=== PATIENT | female | born 1985 | race Caucasian/White ===

== ENCOUNTER 2020-01-12 13:45 | Outpatient (CLI) | payer MEDICAID ==
--- NOTE | 2020-01-12 17:36 | Ultrasound Report ---
Reason: POSITVE TEST Procedure Date: 01/12/2020 Accession Number: [id number] / [id number] Procedure: US - OB First Trimester CPT Code: Final Report FULL RESULT: EXAM: FIRST TRIMESTER OBSTETRIC ULTRASOUND (LESS THAN 11 WEEKS). EXAM DATE: 01/12/2020 02:40 PM. CLINICAL HISTORY: Positive test. LMP: 11/13/2019. COMPARISONS: None. TECHNIQUE: Transabdominal and transvaginal ultrasound examination with static image documentation. CLINICAL DATES: EGA 8 weeks 4 days with AGATA 08/19/2020 based on LMP. ASSESSMENT: Gestational Sac: Single intrauterine. Mean gestational sac diameter: 33 mm = 8 weeks 3 days. Embryo: CRL (crown-rump length) 16 mm = 8 weeks 0 days. Cardiac activity: 171 beats per minute. Yolk sac: 5 mm. Amniotic fluid: Not accurately assessed at this gestational age. Early placenta: Not visible at this gestational age. Other: 1. Perigestational collection in the lower uterus measuring approximately 1.5 x 1 cm. 2. Perigestational collection closer to the fundus measuring approximately 1.7 by 1 cm. MATERNAL STRUCTURES: Uterus: Anteverted. Unremarkable. Cervix: Closed. There is trace fluid in the cervical canal. Right Ovary/Adnexa: The ovary measures 3.5 x 1.9 x 2.9 cm, volume 10.2 cc. A corpus luteum measures 2 x 1.8 x 2.3 cm. A simple paraovarian cyst measures 1.9 x 1.3 cm. Left Ovary/Adnexa: The ovary measures 3.5 x 1.9 x 2 cm, volume 7.1 cc. Unremarkable. Free Fluid: None. Other: None. IMPRESSION: 1. Single viable intrauterine at EGA 7 weeks 0 days with AGATA 09/02/2020 based on crown-rump length, which is within 4 days of clinical dates. 2. Assigned dating is AGATA 08/19/2020 based on LMP. 3. There are 2 small perigestational collections. There is trace fluid in the cervical canal. RADIA
== END 2020-01-12 13:46 | disposition home or self-care (01) ==
LOC: DI 13:45
PROVIDERS: ATTEND Advanced Practice Midwife
DX: Z32.01 Encounter for pregnancy test, result positive (principal)
CPT/HCPCS: 76801; 76817

== ENCOUNTER 2020-01-24 07:00 | Outpatient (CLI) | payer MEDICAID ==
[2020-01-24 16:13] LABS: MUDS CUTOFF CONCENTRATIONS CUTOFF CONC BELOW:
[2020-01-24 16:53] LABS: BILIRUBIN,URINE NEGATIVE (NEGATIVE); GLUCOSE, URINE (UA) NEGATIVE (NEGATIVE); KETONES,URINE (UA) NEGATIVE (NEGATIVE); LEUKOCYTE ESTERASE, URINE NEGATIVE (NEGATIVE); NITRITE,URINE NEGATIVE (NEGATIVE); OCCULT BLOOD,URINE NEGATIVE (NEGATIVE); PROTEIN,URINE NEGATIVE (NEGATIVE); UROBILINOGEN,URINE 0.2 (NORMAL) E.U./dL (NORMAL)
[2020-01-24 17:06] LABS: BACTERIA,URINE None Seen /HPF (None Seen); CLARITY,URINE CLEAR (CLEAR); MUCUS,URINE Few Strands; RBC,URINE None Seen /HPF (0-5); SQUAMOUS EPITHELIAL CELL,UR RARE Squamous (<= Few)
[2020-01-24 17:12] LABS: AMPHETAMINE SCREEN,URINE NEGATIVE (NEGATIVE); BENZODIAZEPINES SCREEN, URINE NEGATIVE (NEGATIVE); COCAINE SCREEN URINE NEGATIVE (NEGATIVE); METHADONE SCREEN, URINE NEGATIVE (NEGATIVE); METHAMPHETAMINES SCREEN, URINE NEGATIVE (NEGATIVE); OPIATE SCREEN, URINE NEGATIVE (NEGATIVE); OXYCODONE SCREEN, URINE NEGATIVE (NEGATIVE); PROPOXYPHENE SCREEN, URINE NEGATIVE (NEGATIVE); TRICYCLIC ANTIDEPRESSANT,URINE NEGATIVE (NEGATIVE)
[2020-01-24 21:18] LABS: TRICHOMONAS VAGINALIS DNA NEGATIVE (NEGATIVE)
== END 2020-01-24 23:59 | disposition home or self-care (01) ==
LOC: LAB.R 07:00
PROVIDERS: ATTEND Advanced Practice Midwife
DX: Z34.90 Encounter for supervision of normal pregnancy, unspecified, unspecified trimester (principal); Z36.89 Encounter for other specified antenatal screening
CPT/HCPCS: 80306; 81001; 87086; 87491; 87591; 87661

== ENCOUNTER 2020-03-24 10:18 | Outpatient (CLI) | payer MEDICAID, OTHER ==
[2020-03-24 10:41] LABS: BASOPHILS % (AUTO) 0.1 %; EOSINOPHILS # (AUTO) 0.1 10^3/uL (0.0-0.7); EOSINOPHILS % (AUTO) 1.2 %; HGB - HEMOGLOBIN 11.6 g/dL (12.0-16.0); LYMPHOCYTES # (AUTO) 1.3 10^3/uL (1.5-3.5); LYMPHOCYTES % (AUTO) 19.2 %; MEAN CORPUSCULAR HEMOGLOBIN 30.9 pg (27.0-31.0); MEAN CORPUSCULAR VOLUME 90.9 fL (81.0-99.0); MEAN PLATELET VOLUME 10.6 fL (7.9-10.8); MONOCYTES # (AUTO) 0.5 10^3/uL (0.0-1.0); MONOCYTES % (AUTO) 6.8 %; NEUTROPHILS # (AUTO) 4.9 10^3/uL (1.5-6.6); NEUTROPHILS % (AUTO) 72.4 %; PLT - PLATELET COUNT 208 10^3/uL (130-450); RED BLOOD COUNT 3.75 10^6/uL (4.20-5.40); RED CELL DISTRIBUTION WIDTH 13.5 % (12.0-15.0); WHITE BLOOD COUNT 6.8 x10^3/uL (4.8-10.8)
[2020-03-25 09:25] LABS: HIV AG/AB 4TH GEN NON-REACTIVE (NON-REACTIVE)
[2020-03-25 11:08] LABS: HEPATITIS B SURFACE ANTIGEN NON-REACTIVE (NON-REACTIVE)
[2020-03-25 11:23] LABS: HEPATITIS C ANTIBODY NON-REACTIVE (NON-REACTIVE)
== END 2020-03-24 10:19 | disposition home or self-care (01) ==
LOC: LAB 10:18
PROVIDERS: ATTEND Advanced Practice Midwife
DX: Z34.90 Encounter for supervision of normal pregnancy, unspecified, unspecified trimester (principal); Z36.89 Encounter for other specified antenatal screening
CPT/HCPCS: 36415; 81599; 85025; 86592; 86762; 86803; 86850; 86900; 86901; 87340; 87389

== ENCOUNTER 2020-04-02 17:27 | Outpatient (CLI) | payer MEDICAID, OTHER ==
--- NOTE | 2020-04-02 21:37 | Ultrasound Report ---
PROCEDURE: OB Detailed Eval INDICATIONS: SUPERVISION OF OUTSIDE/PRIOR DATING DATA: Last menstrual period (LMP): 11/13/2019. LMP-based estimated date of delivery (AGATA): 08/19/2020. First dating scan (date and location): 01/12/2020. Estimated date of delivery (AGATA) from first dating scan: 09/02/2020. TECHNIQUE: Real-time scanning was performed of the fetus, with image documentation and biometric measurements. Endovaginal scanning: Not performed. COMPARISON: Ultrasound dated 01/12/2020 FINDINGS: General: A single living intrauterine gestation is present. Presentation: Cephalic Placenta: Placental position is anterior, without previa. Amniotic fluid index: 17.9 cm, normal for gestational age. heart rate: 141 beats per minute. Maternal cervical canal: 4.6 cm long; normal length is 2.5 cm or more. biometrics: Biparietal diameter: 4.9 cm, 20 weeks 6 days Head circumference: 17.8 cm, 20 weeks 2 days Abdominal circumference: 15.4 cm, 20 weeks 3 days Femur length: 3.3 cm, 20 weeks 4 days Estimated gestational age from initial scan: 20 weeks 1 day. Composite gestational age from present scan: 20 weeks 4 days Estimated weight and percentile: 356 g 64th percentile Measurement variability in biometric dating: +/- 10 days from 12-20 weeks gestation, +/- 2 weeks from 20-30 weeks gestation, +/- 3 weeks at 30 weeks gestation or later. Anatomic survey: Neuro: Ventricles are normal at less than 10 mm. Cisterna magna is normal at 3-11 mm. Cerebellum i s normal in size and morphology. Nuchal skin fold: Normal at less than 6 mm between 14 and 20 weeks gestational age. Face: Nose and lips, facial profile are normal. Spine: No evidence for spina bifida. Heart: 4-chambered heart, right ventricular outflow tract, and left jugular atherogenic bowel seen s econdary to positioning. Diaphragm: Diaphragm is intact. Stomach: Left-sided stomach is present. Kidneys: No hydronephrosis. Normal is less than 5 mm in 2nd trimester, less than 7 mm in 3rd trimester. Cord: 3 vessel cord has orthotopic insertion. Bladder: Normal in size. Extremities: All 4 extremities are visualized. IMPRESSION: 1. Single live intrauterine with size consistent with dates. heart rate is 141 bpm. 2. Four-chamber heart view and the right and left ventricular outflow tracks are not well seen. Santos mmend follow-up examination with evaluation of these structures. Reviewed by: Andrea Peoples MD on 04/02/2020 9:35 PM PDT Approved by: Andrea Peoples MD on 04/02/2020 9:35 PM PDT Station ID: [id number]
== END 2020-04-02 17:28 | disposition home or self-care (01) ==
LOC: DI 17:27
PROVIDERS: ATTEND Obstetrics & Gynecology
DX: Z34.90 Encounter for supervision of normal pregnancy, unspecified, unspecified trimester (principal)
CPT/HCPCS: 76811

== ENCOUNTER 2020-05-29 15:14 | Outpatient (CLI) | payer OTHER ==
--- NOTE | 2020-05-29 17:43 | Ultrasound Report ---
PROCEDURE: OB F/U or Repeat INDICATIONS: INCOMPLE CARDIAC VIEWS ON PRIOR FAS OUTSIDE/PRIOR DATING DATA: Last menstrual period (LMP): 11/13/2019. LMP-based estimated date of delivery (AGATA): 08/19/2020. First dating scan (date and location): 01/12/2020. Estimated date of delivery (AGATA) from first dating scan: 09/02/2020. TECHNIQUE: Real-time scanning was performed of the fetus, with image documentation and biometric measurements. Endovaginal scanning: Not performed COMPARISON: 04/02/2020 FINDINGS: General: A single living intrauterine gestation is present. Presentation: Transverse, head to the maternal right Placenta: Placental position is anterior, without previa. Amniotic fluid index: 17.7 cm, normal for gestational age. Largest pocket is 5.1 cm. heart rate: 136 beats per minute. Maternal cervical canal: 5.6 cm long; normal length is 2.5 cm or more. Other: 4 chambered heart and cardiac outflow tracts are well seen and appear normal. IMPRESSION: 1. Single living intrauterine . 2. Cardiac anatomy appears normal . 3. Closed cervix and normal amniotic fluid volume. Reviewed by: Paulette Finney MD on 05/29/2020 5:42 PM PDT Approved by: Paulette Finney MD on 05/29/2020 5:42 PM PDT Station ID: [id number]
== END 2020-05-29 15:15 | disposition home or self-care (01) ==
LOC: DI 15:14
PROVIDERS: ATTEND Obstetrics & Gynecology
DX: Z34.90 Encounter for supervision of normal pregnancy, unspecified, unspecified trimester (principal)
CPT/HCPCS: 76816

== ENCOUNTER 2020-06-06 10:54 | Outpatient (CLI) | payer OTHER ==
[2020-06-06 12:04] LABS: MEAN CORPUSCULAR HEMOGLOBIN 29.2 pg (27.0-31.0); MEAN CORPUSCULAR HGB CONC 32.5 g/dL (32.0-36.0); MEAN CORPUSCULAR VOLUME 89.8 fL (81.0-99.0); MEAN PLATELET VOLUME 9.9 fL (7.9-10.8); RED BLOOD COUNT 3.43 10^6/uL (4.20-5.40); WHITE BLOOD COUNT 8.7 x10^3/uL (4.8-10.8)
== END 2020-06-06 10:55 | disposition home or self-care (01) ==
LOC: LAB 10:54
PROVIDERS: ATTEND Advanced Practice Midwife
DX: Z34.90 Encounter for supervision of normal pregnancy, unspecified, unspecified trimester (principal)
CPT/HCPCS: 36415; 82950; 85027

== ENCOUNTER 2020-06-08 07:13 | Outpatient (CLI) | payer OTHER | END 2020-06-08 07:14 | disposition home or self-care (01) | LOC: LAB 07:13 | PROVIDERS: ATTEND Advanced Practice Midwife | DX: O99.810 Abnormal glucose complicating pregnancy (principal) | CPT/HCPCS: 36415; 82951; 82952 ==

== ENCOUNTER 2020-07-12 10:43 | Outpatient (CLI) | payer OTHER ==
[2020-07-12 11:07] LABS: HGB - HEMOGLOBIN 10.5 g/dL (12.0-16.0); MEAN CORPUSCULAR HEMOGLOBIN 29.1 pg (27.0-31.0); MEAN CORPUSCULAR HGB CONC 32.8 g/dL (32.0-36.0); MEAN CORPUSCULAR VOLUME 88.6 fL (81.0-99.0); MEAN PLATELET VOLUME 10.1 fL (7.9-10.8); RED BLOOD COUNT 3.61 10^6/uL (4.20-5.40); RED CELL DISTRIBUTION WIDTH 15.6 % (12.0-15.0)
== END 2020-07-12 10:44 | disposition home or self-care (01) ==
LOC: LAB 10:43
PROVIDERS: ATTEND Nurse Practitioner Obstetrics & Gynecology
DX: O99.019 Anemia complicating pregnancy, unspecified trimester (principal)
CPT/HCPCS: 36415; 85027

== ENCOUNTER 2020-07-26 10:40 | Outpatient (CLI) | payer OTHER | END 2020-07-26 23:59 | disposition home or self-care (01) | LOC: LAB.R 10:40 | PROVIDERS: ATTEND Nurse Practitioner Obstetrics & Gynecology | DX: Z36.85 Encounter for antenatal screening for Streptococcus B (principal) | CPT/HCPCS: 87797 ==

== ENCOUNTER 2020-08-26 09:12 | Inpatient (IN) | payer MEDICAID, OTHER ==
[2020-08-26] MEDS ORDERED: TRANEXAMIC ACID 1,000 MG in SODIUM CHLORIDE 0.9% 100ML 100 ML IV PRN (10:37)
[2020-08-26] MEDS ORDERED: ONDANSETRON 4 MG/2 ML VIAL IVP PRN (10:37)
[2020-08-26] MEDS ORDERED: OXYTOCIN/SODIUM CHLORIDE 500 ML IV PRN (10:37)
[2020-08-26] MEDS ORDERED: SODIUM CHLORIDE FLUSH 0.9% 10 ML SYRINGE IVP PRN (10:37)
[2020-08-26] MEDS ORDERED: fentaNYL 100 MCG/2 ML VIAL IVP PRN (10:37)
[2020-08-26] MEDS ORDERED: LIDOCAINE-MPF 1% 30 ML VIAL ID PRN (10:37)
[2020-08-26] MEDS ORDERED: ACETAMINOPHEN 325 MG TABLET PO PRN (10:37)
[2020-08-26] MEDS ORDERED: miSOPROStoL 200 MCG TABLET BC PRN (10:37)
[2020-08-26] MEDS ORDERED: CARBOPROST TROMETHAMINE 250 MCG/ML AMP IM PRN (10:37)
[2020-08-26] MEDS ORDERED: METHYLERGONOVINE 0.2 MG/ML VIAL IM PRN (10:37)
[2020-08-26] MEDS ORDERED: OXYTOCIN 10 UNIT/ML VIAL IM PRN (10:37)
--- NOTE | 2020-08-26 10:44 | HISTORY & PHYSICAL EXAMINATION ---
Admit History - Visit Reason Visit Reason: Other (IOL) - : 3 Parity: 2 Premature: 0 Ectopic: 0 : 0 Care: positive: Other ([facility]) Risk/History: positive: None Complications This : positive: None Smoking Status: Never smoker - Mother's Labs Mother's Blood Type: positive: A Mother's RH: positive: Positive GBS: positive: Group B Step Negative Rubella Status: positive: Immune - Other Maternal History Other Maternal History: -34yo at 41.0 wks gestation who presents to Labor and Delivery for pre- induction cervical ripening due to being post dates -Reports movement -Denies ctx/VB/LOF - care with [facility] which has been adequate - Complications *Anemia of - CBC at 28wks 32.0/10.5, plt 181 -Dating Criteria Initial US: at 8.4wks c/w LMP for AGATA of 08/19/2020. -OB Hx *G1: 2015 41.2wks Male. *G2: 2017 41.0wks Female. *G3: Current -Medications * vitamin-daily * Iron supplementation- daily -Allergies *Penicillin -Medical History *Non contributory -Surgical History *None -Family History *Father- Melanoma *Mother- HTN *Paternal aunt- ovarian cancer -Social History *Non contributory - Labs, Immunizations, and Findings Initial US: at 8.4wks c/w LMP for AGATA of 08/19/2020. Two small collections of fluid noted and trace fluid in cervical canal A pos/Rubella immune Gentic testing: declines. Reconfirmed declination today FAS: WNL with the exception of poor visualization of cardiac structures. Posterior placenta, no previa. 3VC, GAVIN WNL. Size c/w dates F/u ultrasound 05/29/2020 completion U/S WNL. Glucola 160 - 3hr GTT WNL (92, 172, 151, 127) TDAP & FLU declines GBS @ 36.4 - NEG HSV: denies self and partner Breast pump Rx provided MOD: . Desires NCB (epidural x2) Spouse: Dustin. 4yo son, 2yo daughter. Baby Boy: Master?. Wants whirlpool tub. [place] pp contraception: possibly Nexplanon, discussed need for new referral. Will likely wait several months to utilize. Discussed ovulation supression at only 90% for 6 months. Aware. -SVE 1.5/20%/-2/medium/ant -Vertex by BSUS -EFW by gladys's 7.5# -FHTs per flowsheet -Assessment *34yo at 41.0 wks who presents for post dates induction of labor *Wright Score 5- requires cervical ripening * Heart Tones- Category I -Plan *Admit to OBS(until active labor, SROM, AROM, epidural, or pitocin) *Cervical ripening with Misoprostol *Monitoring- Continuous *Comfort measures available- position changes, whirlpool tub, fentanyl, and epidural per maternal preference *Diet/Activity- per maternal preference *Anticipate Review of Systems - All Other Systems All Other Systems: reports: Reviewed and negative Physical - Abdominal Exam Vital Signs: Temp Pulse Resp BP Pulse Ox 36.5 C 114 H 18 125/76 08/26/20 09:39 08/26/20 09:39 08/26/20 09:39 08/26/20 09:39 Contraction Frequency (min/apart): irregular Contraction Intensity: positive: Mild, Irritability Uterine Resting Tone: positive: Soft - Monitoring Heart Rate Baseline: 145, moderate variability, accels 15x15, no decels Strip Review: positive: Category I - Presentation Presentation: positive: Vertex - Vaginal Exam Membranes: positive: Membranes intact Dilation (in cm): 1.5 Effacement (%): 20 Station: positive: -2 Cervical Position: positive: Anterior Plan for Labor - Plan For Labor I expect patient to be DC'd or transferred within 96 hours.: Yes
[2020-08-26 10:45] LABS: BASOPHILS % (AUTO) 0.3 %; EOSINOPHILS # (AUTO) 0.1 10^3/uL (0.0-0.7); EOSINOPHILS % (AUTO) 1.1 %; HGB - HEMOGLOBIN 11.3 g/dL (12.0-16.0); LYMPHOCYTES # (AUTO) 1.2 10^3/uL (1.5-3.5); LYMPHOCYTES % (AUTO) 19.5 %; MEAN CORPUSCULAR HEMOGLOBIN 28.3 pg (27.0-31.0); MEAN CORPUSCULAR HGB CONC 31.7 g/dL (32.0-36.0); MEAN CORPUSCULAR VOLUME 89.2 fL (81.0-99.0); MEAN PLATELET VOLUME 11.2 fL (7.9-10.8); MONOCYTES # (AUTO) 0.6 10^3/uL (0.0-1.0); MONOCYTES % (AUTO) 8.8 %; NEUTROPHILS # (AUTO) 4.5 10^3/uL (1.5-6.6); PLT - PLATELET COUNT 180 10^3/uL (130-450); RED BLOOD COUNT 3.99 10^6/uL (4.20-5.40); RED CELL DISTRIBUTION WIDTH 15.9 % (12.0-15.0); WHITE BLOOD COUNT 6.4 x10^3/uL (4.8-10.8)
[2020-08-26] MEDS: miSOPROStoL 100 MCG TABLET BC SCH ×2 (10:57→21:59)
[2020-08-26] MEDS ORDERED: LACTATED RINGERS 1,000 ML IV SCH (11:00)
[2020-08-26] MEDS ORDERED: SODIUM CHLORIDE FLUSH 0.9% 10 ML SYRINGE IVP SCH (17:00)
--- NOTE | 2020-08-26 22:40 | PROVIDER PROGRESS NOTE ---
Labor Progress Note - Uterine Monitoring Uterine Monitoring Mode: positive: External toco Contraction Frequency (min/apart): 2-6 Contraction Intensity: positive: Mild to moderate Uterine Resting Tone: positive: Soft - Monitoring Monitor Mode: positive: External ultrasound Heart Rate Baseline: 145 Heart Rate Variability: positive: Moderate (6-25 bmp) Accelerations: positive: Present, 15x15 Decelerations: positive: None Strip Review: positive: Category I - Vaginal Exam Dilation (in cm): 2 Effacement (%): 50 Station: -2 Cervical Position: Anterior - Labor Progress Note Labor Progress Note/Additional Text: S: Tawana is active in her room, utilizing ambulation and the birthing ball to stay upright, as desired. is supportive at bedside. Most contractions are mild with an occassional contraction requiring focused breathing for management. O: S/P 2 doses of misoprostol. Her contractions have spaced out and she desires further intervention Cook cervical balloon placed with Uterine: 60mL, and Vaginal: 10mL (as her cervix was too long to accommodate the length between the balloons) Misoprostol 25mcg placed in posterior vaginal fornix SVE: 2/50/-2/soft/ant A: 34yo at 41.0wks gestation Post dates induction Wright score 7- further cervical ripening indicated P: Cervical balloon for 12hrs or until spontaneously expelled Miso 25mcg PV x1 now Continuous monitoring for 4 hours after miso dose, then appropriate for intermittent monitoring if Cat I strip Comfort measures per maternal preference Anticipate
[2020-08-27] MEDS ORDERED: HYDROCORTISONE 1% CREAM 28 GM TUBE PR PRN (04:30)
[2020-08-27] MEDS ORDERED: WITCH HAZEL/GLYCERIN 1 PAD TOP PRN (04:30)
--- NOTE | 2020-08-27 05:13 | DELIVERY NOTE ---
Delivery Note - Labor Labor: positive: Spontaneous - Delivery Method Delivery Method: positive: Spontaneous vaginal delivery - Cervical Ripening Method Cervical Ripening Method: positive: Balloon device, Misoprostil - Presentation Presentation: positive: Vertex, ZHANG - right occiput anterior - Amniotic Fluid Description Amniotic Fluid Description: positive: Clear - Laceration Laceration: positive: 2nd degree - Delivery Outcome Delivery Outcome: positive: Livebirth - Leon : positive: Placed in direct skin contact with mother, Bulb syringe, Stimulated, Wilmer used sex: positive: Male : 7 : 9 - Cord Cord: positive: 3 vessels - Placenta Placenta: positive: Intact, Spontaneous - Estimated Blood Loss Estimated Blood Loss (in cc): 100 - Post Delivery Events Post Delivery Events: positive: No post delivery events - Delivery Comments (Free Text/Narrative) Delivery Comments (Free Text/Narrative): Note: Labor: This 34 year old, , @41.0 wks gestation by 8.4 week Ultrasound, confirmed by LMP, presented for induction of labor. Cervix was 1.5/20/-2 and vertex by BSUS. FHR pattern demonstrated 145 baseline in a Category I pattern. Misoprostol and cervical balloon utilized for induction. SROM at 0119 for moderate and clear. Normal labor course. Nitrous oxide utilized for pain management. A moderate gush of blood was noted and patient was checked at 0526 and found to be complete and +1 station. : Normal of a 4060 gm male infant on 08/27/2020 @ 0303. Nuchal present x1, and baby sommersaulted through. The was placed on maternal abdomen, stimulated, dried and placed skin to skin. Apgars 7 at one minute and 9 at five minutes. The umbilical cord was allowed to stop pulsating at which time it was doubly clamped by CNM and cut by FOB. Pitocin administered via IV for hemostasis. Fundal massage and gentle cord traction applied for active third stage management. Cord blood was obtained. Placenta delivered spontaneously and intact at 0322. Three vessel cord. EBL 100mL. Fourth Stage: Uterine fundus firm and without excessive bleeding. The perineum, vagina, and cervix were inspected and it is found that she sustained a second degree perineal laceration. MD called at 0330 to perform repair. initiated. Family bonding well. Both mother and baby are in stable condition.
--- NOTE | 2020-08-27 05:35 | PROCEDURE REPORT ---
Hospitalist Procedure Note - Procedure Note Procedure Note: Asked by CNM to assist in repair of patient's obstetric laceration. Initial assessment was a 3rd degree perineal laceration and pt had received local anesthesia block with CNM. Patient was withdrawing from my touch in assessing the laceration. She was offered a spinal for pain control which she desired--her labor had been unmedicated. Spinal placed without difficulty. Finger placed into the anus and the perineum was assessed--both sphincters were intact, final dx was a 2nd degree perineal laceration. Repaired with 2-0 and 4- 0 vicryl to restore normal anatomy. Patient tolerated well; no complications. Additional EBL was minimal. Sharp and lap counts were correct at the end of the closure. Plan for routine post-laceration management.
[2020-08-27] MEDS: miSOPROStoL 100 MCG TABLET BC SCH (07:04)
[2020-08-27] MEDS: IBUPROFEN 600 MG TABLET PO SCH ×4 (11:04→22:48)
[2020-08-27] MEDS: DOCUSATE SODIUM 100 MG CAPSULE PO SCH ×2 (11:04→22:48)
--- NOTE | 2020-08-27 17:35 | PROVIDER PROGRESS NOTE ---
Subjective - Prog Note Date Prog Note Date: 08/27/20 Prog Note Time: 17:22 - Subjective Pt reports feeling: Improved Subjective: S: Tawana is resting in bed, about to enjoy her dinner. She reports her bleeding as mostly light, with an occasional "gush" with . She says baby Master is well, and has no concerns. Her perineal area is reported as sore, but ibuprofen as adequate for pain management. There was some difficulty with her first urination, but that is resolved. She has not stooled yet, but is enthusiastic about using the stool softeners until that is well established. O: Fundus firm Lochia rubra A: 34yo s/p 08/27/2020 pp day 1 Normal recovery P: Continue with routine care Evaluate for discharge home tomorrow morning Objective - Vital Signs/Intake & Output Vital Signs: Vital Signs x48h Temp Pulse Resp BP Pulse Ox 08/27/20 14:27 36.8 C 87 17 103/58 L 100 08/27/20 11:06 36.8 C 74 16 126/70 100 Intake & Output: Intake & Output 08/24/20 08/25/20 08/26/20 08/27/20 23:59 23:59 23:59 23:59 Intake Total 1000 Output Total 0 Balance 1000 - Lab Results Fish Bones: 08/26/20 10:00 Other Labs: Lab Results x24hrs 08/26/20 Range/Units 12:45 Coronavirus (PCR) NEGATIVE
[2020-08-28] MEDS: IBUPROFEN 600 MG TABLET PO SCH ×2 (04:54→10:54)
--- NOTE | 2020-08-28 08:17 | DISCHARGE SUMMARY ---
Discharge Summary - [facility] History of Present Illness: Admit Date 08/26/2020 Discharge Date 08/28/2020 Diagnosis on Admission: 1. A 34yo at 41.0 week intrauterine 2. IOL for post-dates Diagnosis on Discharge 1. A 34yo s/p spontaneous vaginal delivery on 08/27/2020 2. Normal recovery Brief History: This 34 year old, , @41.0 wks gestation by 8.4 week Ultrasound, confirmed by LMP, presented for induction of labor. Cervix was 1.5/20/-2 and vertex by BSUS. FHR pattern demonstrated 145 baseline in a Category I pattern. Misoprostol and cervical balloon utilized for induction. SROM at 0119 for moderate and clear. Normal labor course. She spontaneously delivered a viable male infant named Master. Apgars were 7 and 9- and 1 and 5 minutes respectively. EBL 100mL. The patient has a 2nd degree laceration that was repaired with 2-0 vicryl and 4- 0 vicryl in usual fashion under sterile conditions by . She has been doing well in her course. She is ambulating and tolerating a regular diet. She is urinating without difficulty and her lochia is normal. Her pain is well controlled with oral medications. She will be discharged home today on day #2 without need for. She intends to follow up with Midwifery at [facility] in 1, and 6 weeks for routine visit. She has been given precautions to call if she has any worsening fevers, chills, abdominal pain, increased bleeding or foul smelling vaginal lochia. - ALLERGIES Allergies/Adverse Reactions: Allergies Allergy/AdvReac Type Severity Reaction Status Date / Time Penicillins Allergy Severe Anaphylaxis Verified 08/26/20 14:07 - LABS Result Diagrams: 08/26/20 10:00
--- NOTE | 2020-08-28 08:20 | PROVIDER PROGRESS NOTE ---
Subjective - Prog Note Date Prog Note Date: 08/28/20 Prog Note Time: 08:18 - Subjective Pt reports feeling: Improved Subjective: Final Progress Note S: Tawana is resting in bed, FOB is soothing baby on the couch. She reports her bleeding as light. She says baby Master is well, although for longer sessions that she remembers with her other babies. She reports ibuprofen as adequate for pain management. Taking DOS scheduled, and has some at home. O: Fundus firm Lochia rubra A: 34yo s/p 08/27/2020 pp day 2 Normal recovery P: Continue with routine care Evaluate for discharge home today Objective - Vital Signs/Intake & Output Vital Signs: Vital Signs x48h Temp Pulse Resp BP Pulse Ox 08/28/20 03:44 36.9 C 86 16 112/68 100 Intake & Output: Intake & Output 08/25/20 08/26/20 08/27/20 08/28/20 23:59 23:59 23:59 23:59 Intake Total 1000 Output Total 0 Balance 1000 - Lab Results Fish Bones: 08/26/20 10:00 Other Labs: Lab Results x24hrs 08/26/20 Range/Units 12:45 Coronavirus (PCR) NEGATIVE
--- NOTE | 2020-08-28 08:21 | Discharge Plan ---
Discharge Plan Problem Reviewed?: Yes Disposition: Home, Self Care Condition: Good Shower Restrictions: No Driving Restrictions: No Weight Bearing: Full Weight Additional Instructions or Follow Up instructions: Follow up with Midwifery at 1 and 6 weeks No Smoking: If you smoke, Please STOP! Call for help. Follow-up with: Kirti Bagley ARNP [Provider Admit Priv/Credential] -
[2020-08-28 10:07] VITALS: BP 121/63
[2020-08-28] MEDS: DOCUSATE SODIUM 100 MG CAPSULE PO SCH (10:14)
--- NOTE | 2020-08-28 12:05 | Labor Flowsheet ---
Labor Flowsheet Datetime Report Generated by CPN: 08/28/2020 12:05 Datetime: 08/28/2020 09:17 VITAL SIGNS NBP Sys/Marly/Mean (mmHg): 121 : 63 : 74 Pulse: 79 Datetime: 08/27/2020 05:54 SpO2 (%): 100 Datetime: 08/27/2020 05:36 Patient Care Comments: patient resting well Datetime: 08/27/2020 05:24 I/O Interventions: Straight Cath (ml) @ 400 Datetime: 08/27/2020 04:09 ANESTHESIA Anesthesia Comments: anesthesia called for spinal placement for repair Datetime: 08/27/2020 03:31 COMMUNICATION Communication: Call/Page Placed to Provider Provider Notified (Name): Dr Jana Notification Reason: Status Update; Other Communication Comments: Asked to come in to assist repair Datetime: 08/27/2020 03:29 Membranes Ruptured Date/Time: 08/27/2020 01:19 Datetime: 08/27/2020 03:04 Stage of : Recovery Datetime: 08/27/2020 02:57 VAGINAL EXAM Dilatation (cm): 10.0 Datetime: 08/27/2020 02:52 Amniotic Fluid Color: Bloody Amniotic Fluid Amount: Large (Annotations: noted large quantity of blood pooling at perineum while patient laboring on floor mattress. CNM to bedside to evaluate. ) Datetime: 08/27/2020 02:44 Hygiene: patient assisted to mattress on floor and labors with nitrous for labor relief Datetime: 08/27/2020 02:25 Exam by: CNM PATIENT CARE Patient Position/Activity: patient assisted to birthing ball with support person stabilizing patien t safely Datetime: 08/27/2020 01:50 UTERINE ACTIVITY Monitor Mode: External Frequency (min): 1-2 Quality: Strong Duration (sec): 80-90 Pattern: Tachysystole: > 5 Contractions in 10 Minutes Resting Tone (Palpate): Relaxed ASSESSMENT A Monitor Mode: Telemetry FHR Baseline Rate : 135 Variability: Moderate 6-25 bpm Accelerations: None Decelerations: Variable Category: Category II Comments: potential maternal tracing in tub. CNM, wheelabrator operator and this RN remains at tubside. Datetime: 08/27/2020 01:19 Membrane Status: Ruptured Membranes Rupture Method: Spontaneous Amniotic Fluid Odor: Normal Datetime: 08/27/2020 01:15 LaborFlag: Labor Datetime: 08/26/2020 22:00 Pain Coping: Breathing Through Contractions Datetime: 08/26/2020 21:56 Effacement (%): 50 Station: -2 Vaginal Exam Comments: CNM performs SVE noting minimal change. After consenting the patient to fole y bulb induction of labor places smith (60cc uterine and 10cc vaginally). Provider places 25mg dose o f cytotec vaginally. MEDICATIONS Cervical Ripening Agents: Smith Balloon; Cytotec @ Datetime: 08/26/2020 21:15 Temperature (C): 36.6 Datetime: 08/26/2020 20:00 PAIN Pain Presence: Intermittent Pain Type: Cramping Pain Location: Abdomen; Back Datetime: 08/26/2020 18:59 FHR Baseline Changes: No Baseline Change Datetime: 08/26/2020 17:17 Respirations: 18 Datetime: 08/26/2020 16:03 Provider Reviewed Strip: Yes Datetime: 08/26/2020 13:58 Actions for Decelerations: Provider Notified
== END 2020-08-28 11:54 | disposition home or self-care (01) | DRG 807 ==
LOC: WFO 09:12 → FBP 09:19 → WFO 10:36 → FBP 10:37 → INTOOBSV 10:37 → OBSVTOIN 08-27 01:20
PROVIDERS: ADMIT Advanced Practice Midwife; ATTEND Advanced Practice Midwife
PROC: 10E0XZZ Delivery of Products of Conception, External Approach (ICD-10-PCS; principal; 2020-08-27)
PROC: 0KQM0ZZ Repair Perineum Muscle, Open Approach (ICD-10-PCS; 2020-08-27)
DX: O48.0 Post-term pregnancy (principal); Z37.0 Single live birth; Z3A.41 41 weeks gestation of pregnancy; O70.1 Second degree perineal laceration during delivery
CPT/HCPCS: 51703; 85025; 86850; 86900; 86901; 87635; A9270; G0378; J7120

== ENCOUNTER 2022-05-14 12:51 | Outpatient (CLI) | payer MEDICAID ==
[2022-05-14 15:05] LABS: BASOPHILS % (AUTO) 0.3 %; EOSINOPHILS # (AUTO) 0.1 10^3/uL (0.0-0.7); EOSINOPHILS % (AUTO) 1.1 %; HCT - HEMATOCRIT 41.8 % (37.0-47.0); HGB - HEMOGLOBIN 13.7 g/dL (12.0-16.0); LYMPHOCYTES # (AUTO) 1.7 10^3/uL (1.5-3.5); LYMPHOCYTES % (AUTO) 26.1 %; MEAN CORPUSCULAR HEMOGLOBIN 28.5 pg (27.0-31.0); MEAN CORPUSCULAR HGB CONC 32.8 g/dL (32.0-36.0); MEAN CORPUSCULAR VOLUME 86.9 fL (81.0-99.0); MEAN PLATELET VOLUME 10.6 fL (7.9-10.8); MONOCYTES # (AUTO) 0.5 10^3/uL (0.0-1.0); MONOCYTES % (AUTO) 7.4 %; NEUTROPHILS # (AUTO) 4.3 10^3/uL (1.5-6.6); NEUTROPHILS % (AUTO) 64.9 %; PLT - PLATELET COUNT 281 10^3/uL (130-450); RED BLOOD COUNT 4.81 10^6/uL (4.20-5.40); RED CELL DISTRIBUTION WIDTH 13.4 % (12.0-15.0); WHITE BLOOD COUNT 6.6 x10^3/uL (4.8-10.8)
[2022-05-14 15:12] LABS: ALBUMIN 4.5 g/dL (3.2-5.5); CREATININE 0.7 mg/dL (0.4-1.0); MAGNESIUM 2.1 mg/dL (1.7-2.8); POTASSIUM 3.8 mmol/L (3.5-5.0)
[2022-05-14 15:37] LABS: THYROID STIMULATING HORMONE 2.48 uIU/mL (0.34-5.60)
[2022-05-14 15:54] LABS: ALBUMIN/GLOBULIN RATIO 1.4 (1.0-2.2); BILIRUBIN,TOTAL 0.7 mg/dL (0.2-1.0); TOTAL PROTEIN 7.8 g/dL (6.7-8.2)
== END 2022-05-14 12:52 | disposition home or self-care (01) ==
LOC: LAB.S 12:51
PROVIDERS: ATTEND Registered Nurse
DX: R00.2 Palpitations (principal)
CPT/HCPCS: 36415; 80050; 83735